=== PATIENT | male | born 1995 | race Caucasian/White ===

== ENCOUNTER → 2024-01-13 | Outpatient (CLI) | payer SELFPAY ==
--- NOTE | 2024-01-13 17:07 | RAD_ITS ---
INDICATION: PAIN injured, rolled foot today, lateral side swelling and pain EXAMINATION/TECHNIQUE: X-RAY - RIGHT XR Foot Min 3 Views 3 VIEWS COMPARISON: None. FINDINGS: BONES: No fracture demonstrated. JOINTS: No dislocation. SOFT TISSUES: Unremarkable. RAD/Foot min 3 Views IMPRESSION: No evidence of fracture. Electronically Signed: Stephanie Martin MD at 8:01 EDT ,
== END | disposition home or self-care (01) ==
PROVIDERS: Referring Provider Podiatrist; Visit Provider Podiatrist
DX: S93.601A Unspecified sprain of right foot, initial encounter (principal)
CPT/HCPCS: 73630